=== PATIENT | female | born 1945 | race Caucasian/White ===

== ENCOUNTER 2020-06-06 14:14 | Emergency (ER) | payer MEDICARE ==
[2020-06-06] MEDS ORDERED: Boostrix 0.5 ML (Tdap) VIAL ONE (14:45)
[2020-06-06] MEDS ORDERED: Ondansetron PF 4 MG/2 ML Vial ONE (14:45)
[2020-06-06] MEDS ORDERED: Morphine 4 MG/ML VIAL ONE (14:45)
[2020-06-06] MEDS ORDERED: Clindamycin/D5W 600 mg/50 ml Premix Bag ONE (15:49)
[2020-06-06] MEDS ORDERED: Ketamine 50 MG/ML (10ML VIAL) ONE (17:20)
[2020-06-06] MEDS ORDERED: Lidocaine 1% w/Epinephrine 1:100K 20 ML VIAL ONE (17:56)
[2020-06-06] MEDS ORDERED: Ondansetron ODT 4 MG TAB ONE (19:20)
== END 2020-06-06 20:55 | disposition home or self-care (01) ==
LOC: ERS 14:14
DX: S81.811A Laceration without foreign body, right lower leg, initial encounter (principal); S51.011A Laceration without foreign body of right elbow, initial encounter; S70.01XA Contusion of right hip, initial encounter; R06.2 Wheezing; E78.00 Pure hypercholesterolemia, unspecified; F17.210 Nicotine dependence, cigarettes, uncomplicated; W01.0XXA Fall on same level from slipping, tripping and stumbling without subsequent striking against object, initial encounter
CPT/HCPCS: 12001; 12031; 90471; 90715; 96365; 96375; 99152; 99153; J2270; J2405; J3490; Q0162

== ENCOUNTER 2023-08-23 07:33 | Outpatient (CLI) | payer MEDICARE | END 2023-08-23 07:34 | disposition home or self-care (01) | LOC: BICMRI 07:33 | PROVIDERS: ATTEND Student in an Organized Health Care Education/Training Program | DX: M17.12 Unilateral primary osteoarthritis, left knee (principal); M25.562 Pain in left knee; T69.022A Immersion foot, left foot, initial encounter; Z96.652 Presence of left artificial knee joint ==